=== PATIENT | female | born 1960 | race Hispanic/Latino ===

== ENCOUNTER → 2018-04-21 | Outpatient (CLI) | payer OTHER ==
[~2018-04-21] MED LIST: DIOVAN80 MG PO; METFORMIN HCL500 MG PO
--- NOTE | 2018-05-02 08:36 | Diagnostic Imaging Report ---
#[id number] - MGSCRBIL #BILATERAL DIGITAL SCREENING MAMMOGRAM WITH CAD: 04/21/2018 CLINICAL: Routine screening. Comparison is made to exams dated: 03/19/2017 mammogram and 09/06/2015 mammogram - [facility]. Current study contains 4 films. There are scattered fibroglandular elements in both breasts. Current study was also evaluated with a Computer Aided Detection (CAD) system. There are benign calcifications in both breasts. No significant masses, calcifications, or other findings are seen in either breast. There has been no significant interval change. IMPRESSION: BENIGN There is no mammographic evidence of malignancy. A 1 year screening mammogram is recommended. The patient will be notified by letter of the results. Preet patel/kary:04/29/2018 08:48:21 Cmo: Kathie SAENZ(Andrea)(M), [facility] letter sent: Compared to Prior B9 Mammogram BI-RADS: 2 Benign
== END ==
LOC: MAMMO 08:50
PROVIDERS: ATTEND Internal Medicine
DX: Z12.31 Encounter for screening mammogram for malignant neoplasm of breast (principal)
CPT/HCPCS: 77067

== ENCOUNTER 2018-10-03 05:10 | Observation (INO) | payer OTHER ==
[~2018-10-03] VITALS: Ht 160 cm; Wt 74.8 kg
[2018-10-03] MEDS ORDERED: BACITRACIN 50,000 UNIT VIAL ONE (06:10)
[2018-10-03] MEDS ORDERED: TRANEXAMIC ACID 1,000 MG/10 ML ML ONE (06:10)
[2018-10-03] MEDS ORDERED: VANCOMYCIN HCL 1,000 MG ONE (06:10)
[2018-10-03] MEDS ORDERED: CELECOXIB 200 MG CAP ONE (06:14)
[2018-10-03] MEDS ORDERED: DEXAMETHASONE SOD PHOS 10 MG/1 ML VIAL ONE (06:14)
[2018-10-03] MEDS ORDERED: GABAPENTIN 300 MG CAP ONE (06:15)
[2018-10-03] MEDS ORDERED: VANCOMYCIN 1GM/NS 250 ML 250 ML ONE (06:15)
[2018-10-03] MEDS ORDERED: SODIUM CHLORIDE 0.9% 500ML 500 ML ONE (06:31)
[2018-10-03] MEDS ORDERED: ROPIVACAINE 246.25 MG, EPINEPHRINE HCL 1:1000 1ML 0.5 MG, CLONIDINE HCL 0.08 MG, KETORO... INJ ONE ×5 (07:30)
[2018-10-03] MEDS ORDERED: SODIUM CHLORIDE 0.9% 1000ML 1,000 ML IV SCH (08:39)
[2018-10-03] MEDS ORDERED: DOCUSATE SODIUM 100 MG CAP PO PRN ×2 (08:45→09:15)
[2018-10-03] MEDS ORDERED: HYDROCODONE/APAP 5MG-325MG TAB PO PRN ×2 (08:45→09:15)
[2018-10-03] MEDS ORDERED: DIPHENHYDRAMINE HCL INJ 50 MG/ML VIAL IM/IV PRN ×2 (08:45→09:15)
[2018-10-03] MEDS ORDERED: PROMETHAZINE HCL (IM) 25 MG/ML VIAL INJ PRN (08:45)
[2018-10-03] MEDS ORDERED: HYDROCODONE/APAP 7.5MG-325MG 1 EA TAB PO PRN ×2 (08:45→09:15)
[2018-10-03] MEDS ORDERED: VANCOMYCIN 1GM/NS 250 ML 250 ML IV SCH (08:45)
[2018-10-03] MEDS ORDERED: ZOLPIDEM TARTRATE 5 MG TAB PO PRN ×2 (08:45→21:00)
[2018-10-03] MEDS ORDERED: ONDANSETRON HCL INJ 2MG/ML 2ML 2 MG/ML VIAL IV PRN (08:45)
[2018-10-03] MEDS ORDERED: KETOROLAC TROMETHAMINE 30 MG/ML VIAL IV PRN (08:45)
[2018-10-03] MEDS ORDERED: CELECOXIB 100 MG CAP PO SCH ×2 (09:00→09:15)
[2018-10-03] MEDS ORDERED: ASPIRIN 325 MG TAB PO SCH (09:00)
--- NOTE | 2018-10-03 09:10 | Diagnostic Imaging Report ---
Exam: Right knee 2 views History: Postsurgical Comparison: None. Findings: See impression Impression: 1. Post surgical changes of total right knee replacement with appropriately positioned surgical hardware. No periprosthetic displaced fracture. Expected subcutaneous gas and skin elpidio. Signed by: Dr. Fredrick Mahajan M.D. on 10/03/2018 9:06 AM
--- OUTSIDE RECORDS SUMMARY | 2018-10-03 09:10 | XMS REPORT ---
Author Author [facility] Address Unknown Phone Unavailable Care Team Providers Care Laborer Livestock Name Role Phone Gómez SANTIAGO Unavailable Unavailable Problems This patient has no known problems. Allergies, Adverse Reactions, Alerts This patient has no known allergies or adverse reactions. Medications This patient has no known medications. Results Test Description Test Time Test Comments Text Results Atomic Results Result Comments MAMMOGRAPHY DIGITAL SCR BILAT 2018-04-21 10:10:00 [place] [address] Patient Name: MARVIN CAO MR #: [id number] : 1960 Age/Sex: 57/F Req #: [id number] [facility] Physician: Ordered by: TAMIE SANTIAGO MD Report #: [id number] Location: MAMMO Room/Bed: Procedure: [id number] MG/MAMMOGRAPHY DIGITAL SCR BILAT Exam Date: 04/21/18 Exam Time: 925 REPORT STATUS: Signed #[id number] - MGSCRBIL #BILATERAL DIGITAL SCREENING MAMMOGRAM WITH CAD: 04/21/2018 CLINICAL: Routine screening. Comparison is made to exams dated: 03/19/2017 mammogram and 09/06/2015 mammogram - [facility]. Current study contains 4 films. There are scattered fibroglandular elements in both breasts. Current study was also evaluated with a Computer Aided Detection (CAD) system. There are benign calcifications in both breasts. No significant masses, calcifications, or other findings are seen in either breast. There has been no significant interval change. IMPRESSION: BENIGN There is no mammographic evidence of malignancy. A 1 year screening mammogram is recommended. The patient will be notified by letter of the results. Buffy patel/catalina:04/29/2018 08:48:21 Vulcanizing Press Operator: Kathie SAENZ(Andrea)(Cl), [facility] letter sent: Compared to Prior B9 Mammogram BI-RADS: 2 Benign Dictated By: BUFFY ROBLERO DO 0848 Transcribed By: CATALINA on 04/29/18 0848 COPY TO: TAMIE SANTIAGO MD MAMMOGRAPHY DIGITAL SCR BILAT [place] [address] Patient Name: MARVIN CAO MR #: [id number] : 1960 Age/Sex: 56/F Req #: [id number] Adm Physician: Ordered by: TAMIE SANTIAGO MD Report #: [id number] Location: MAMMO Room/Bed: Procedure: [id number] MG/MAMMOGRAPHY DIGITAL SCR BILAT Exam Date: 03/19/17 Exam Time: 0833 REPORT STATUS: Signed #[id number] - MGSCRBIL #BILATERAL DIGITAL SCREENING MAMMOGRAM WITH CAD: 03/19/2017 CLINICAL: Routine screening. Comparison is made to exams dated: 09/06/2015 mammogram - [facility], 08/17/2014 mammogram and 04/28/2012 mammogram - [facility] [place]. Current study contains 4 films. There are scattered fibroglandular elements in both breasts. Current study was also evaluated with a Computer Aided Detection (CAD) system. There are benign calcifications in both breasts. No significant masses, calcifications, or other findings are seen in either breast. There has been no significant interval change. IMPRESSION: BENIGN There is no mammographic evidence of malignancy. A 1 year screening mammogram is recommended. The patient will be notified by letter of the results. Bufyf patel/catalina:03/30/2017 09:13:59 Vulcanizing Press Operator: Kathie SAENZ(R)(M), [facility] letter sent: Compared to Prior B9 Mammogram BI-RADS: 2 Benign Dictated By: BUFFY ROBLERO DO 2 Transcribed By: CATALINA on 03/30/17912 COPY TO: TAMIE SANTIAGO MD
[2018-10-03] MEDS ORDERED: PROMETHAZINE HCL (IM) 25 MG/ML VIAL IM PRN (09:15)
[2018-10-03] MEDS ORDERED: FENTANYL CITRATE/PF 100MCG/2 ML INJ ONE ×2 (09:59→17:32)
[2018-10-03 10:50] VITALS: BP 137/64
[2018-10-03 11:33] VITALS: BP 137/64
--- NOTE | 2018-10-03 12:45 | NUR ---
PT STATES SHE HAS ALLERGY TO VICODIN. LEFT MESSAGE FOR DR. LOCKWOOD FOR DIFFERENT PAIN MEDICATION SINCE PT HAS NORCO ORDERED. AWAITING CALL BACK.
--- NOTE | 2018-10-03 13:03 | NUR ---
SPOKE TO DR. LOCKWOOD STATES OK TO GIVE TRAMADOL DUE TO REACTION TO NORCO. PT STATES SHE GETS SEVERE VOMITING. TRAMADOL ORDER RECEIVED.
[2018-10-03] MEDS: SODIUM CHLORIDE 0.9% 1000ML 1,000 ML IV SCH ×2 (13:43→19:15)
[2018-10-03] MEDS: ONDANSETRON HCL INJ 2MG/ML 2ML 2 MG/ML VIAL IV PRN ×2 (15:03→18:44)
--- NOTE | 2018-10-03 15:21 | Operative Report ---
DATE OF PROCEDURE: 10/03/2018 SURGEON: Fredrick Bobby MD DIRECTOR PRIVATE MUSIC THERAPY AGENCY: Devyn Jaime PA-C. PREOPERATIVE DIAGNOSIS: Osteoarthritis, right knee. POSTOPERATIVE DIAGNOSIS: Osteoarthritis, right knee. PROCEDURE: Right total knee arthroplasty. INDICATIONS: The patient is a 58-year-old lady, who has end-stage arthritis of her right knee. She has failed conservative management and would like to proceed with a knee replacement. The risks and benefits of the procedure have been discussed at length. The hospital stay, implants, and recovery have all been explained. All of her questions have been answered. She states she understands and wishes to proceed. PROCEDURE IN DETAIL: The patient was brought to the operating room and placed under general anesthetic. She received prophylactic antibiotics, tranexamic acid, and a regional block in the holding area. Her right lower extremity was prepped and draped in a sterile manner. A preoperative time-out was performed, the extremity was exsanguinated and the proximal tourniquet was inflated to 300 mmHg. An anterior approach with a medial parapatellar arthrotomy was performed. A limited medial exposure was performed due to the patient's valgus alignment. Clear synovial fluid was removed from the joint. The knee was brought up into flexion with the patella everted. Complete loss of articular cartilage down to polished subchondral bone was noted primarily involving the lateral compartment. The anterior cruciate ligament was sacrificed. Marginal osteophytes and meniscal remnants were excised. A Malcolm [employer]omet Persona Medial Congruent knee system was used throughout the case. An extramedullary cutting guide was used to resect the proximal tibia. The tibial baseplate was a size D. The central fin punch was impacted and attention was directed towards the distal femur. An intramedullary cutting guide was used to resect the distal femur in 5 degrees of valgus and rotation referencing off a combination of landmarks including Whitesides line, the epicondylar axis, and the posterior condyles as degree of hypoplasia of the posterior lateral condyle was taken into account. The femoral component was a size #7. The anterior and posterior cuts were made. A trial reduction was performed. The lateral compartment was overly tight. A #11 blade and a lamina binder folder operator were used to pie crust the iliotibial band and to balance the knee. A repeat trial reduction with a 10 mm medial congruent insert provided appropriate soft tissue balancing in full extension and 90 degrees of flexion. The patella was resurfaced with a 29 mm patellar button. The thickness of the patella was checked before and after and was right at 20 mm. Patellar tracking was noted to be concentric. The trial implants were then all removed. A 100 mL premixed pericapsular MARTIR injection was placed into the surrounding soft tissue. The knee was thoroughly irrigated with a shower tip pulsatile lavage. Throughout the case, as well, the knee was thoroughly irrigated with a mixture of diluted polymyxin and vancomycin spray. The components were then cemented into place using a single mix of Palacos cement preloaded with antibiotics. Care was taken to remove all extravasated cement. The wound was further irrigated while the cement cured. The arthrotomy was then closed with interrupted #1 Ethibond. The knee was put through flexion and extension to ensure a secure closure. The skin was closed with subcuticular Vicryl elpidio. A sterile Aquacel bandage was applied. She was extubated and transported to recovery room in stable condition. Blood loss was minimal. All needle and sponge counts were correct. Fredrick Bobby MD DR/SIOMARA /[id number]
[2018-10-03 15:28] VITALS: BP 145/64
[2018-10-03] MEDS: ASPIRIN 325 MG TAB PO SCH (17:07)
[2018-10-03] MEDS: CELECOXIB 200 MG CAP PO SCH (17:07)
[2018-10-03] MEDS: VANCOMYCIN 1GM/NS 250 ML 250 ML IV SCH (17:07)
[2018-10-03] MEDS ORDERED: MIDAZOLAM HCL 2 MG/2 ML VIAL ONE (17:32)
[2018-10-03] MEDS ORDERED: ROPIVACAINE 0.5% 5 MG/ML 30 ML SDV ONE (17:33)
[2018-10-03] MEDS ORDERED: LIDOCAINE 2%/ EPINEPHRINE 20ML MDV ONE (17:33)
--- NOTE | 2018-10-03 18:30 | NUR ---
PT PLACED ON CPM AT THIS TIME 55 DEGREES.
[2018-10-03] MEDS ORDERED: KETOROLAC TROMETHAMINE 30 MG/ML VIAL ONE (18:52)
[2018-10-03] MEDS ORDERED: LIDOCAINE HCL 2% LOCAL INJ 5 ML SDV VIAL INJ ONE (18:52)
[2018-10-03] MEDS ORDERED: GLYCOPYRROLATE INJ 1MG/ 5 ML SYR ONE (18:52)
[2018-10-03] MEDS ORDERED: PROPOFOL IV EMULSION 10 MG/ML 20 ML VIAL ONE (18:52)
[2018-10-03] MEDS ORDERED: ONDANSETRON HCL INJ 2MG/ML 2ML 2 MG/ML VIAL ONE (18:52)
[2018-10-03] MEDS ORDERED: SEVOFLURANE INHAL SOLN 250 ML PEN BTL ONE (18:52)
--- NOTE | 2018-10-03 19:01 | NUR ---
BEDSIDE SHIFT REPORT PERFORMED WITH Maribel PARISH RN. PT IS AAOX3, LAYING SEMI FOWLERS IN BED, ON CPM. RR EVEN AND NON-LABORED, ON RA. NO S/SX OF DISTRESS NOTED. LEFT PT LAYING SEMI FOWLERS IN BED, BED IN LOW LOCKED POSITION, SIDE RAILS UPX2, CALL LIGHT AND PHONE WITHIN REACH.
[2018-10-03 20:00] VITALS: BP 121/70
[2018-10-03 23:07] VITALS: BP 121/70
[2018-10-04] VITALS (8 sets, daily range): BP systolic 109–157; BP diastolic 55–69
[2018-10-04] MEDS: TRAMADOL HCL 50 MG TAB PO PRN ×2 (00:02→04:17)
--- NOTE | 2018-10-04 00:10 | NUR ---
APPLIED ICE TO (R) KNEE
[2018-10-04] MEDS: SODIUM CHLORIDE 0.9% 1000ML 1,000 ML IV SCH (02:20)
--- NOTE | 2018-10-04 04:20 | NUR ---
APPLIED ICE TO (R) KNEE
--- NOTE | 2018-10-04 05:00 | NUR ---
REMOVED ICE FROM (R) KNEE
--- NOTE | 2018-10-04 05:55 | NUR ---
REMOVED IRWIN WRAP FROM (R) LEG. LEFT SURGICAL AQUACEL DRESSING IN PLACE OVER (R) KNEE INCISION. APPLIED ADAMARIS PERSAUD.
[2018-10-04] MEDS: VANCOMYCIN 1GM/NS 250 ML 250 ML IV SCH (06:14)
[2018-10-04 06:42] LABS: BASOPHILS % 0.1 % (0.0-1.0); EOSINOPHILS # (AUTO) 0.2 (0.0-0.4); EOSINOPHILS % 1.5 % (0.0-6.0); HEMATOCRIT 33.2 % (34.2-44.1); HEMOGLOBIN 10.7 g/dL (12.0-16.0); LYMPHOCYTES # (AUTO) 1.8 (1.0-3.2); LYMPHOCYTES % 17.3 % (18.0-39.1); MEAN CORPUSCULAR HEMOGLOBIN 29.9 pg (28-32); MEAN CORPUSCULAR HGB CONC 32.2 g/dL (31-35); MEAN CORPUSCULAR VOLUME 92.7 fL (81-99); MONOCYTES % 9.2 % (4.4-11.3); NEUTROPHILS # (AUTO) 7.6 (2.1-6.9); NEUTROPHILS % 71.5 % (38.7-80.0); PLATELET COUNT 202 x10e3/uL (140-360); RED BLOOD COUNT 3.58 x10e6/uL (3.6-5.1); RED CELL DISTRIBUTION WIDTH 14.6 % (11.7-14.4)
[2018-10-04 07:04] LABS: ALANINE AMINOTRANSFERASE 16 IU/L (0-55); ALBUMIN 3.1 g/dL (3.5-5.0); ALKALINE PHOSPHATASE 51 IU/L (40-150); ANION GAP 9.5 mmol/L (8-16); BLOOD UREA NITROGEN 12 mg/dL (7-26); BUN/CREATININE RATIO 16 (6-25); CARBON DIOXIDE 25 mmol/L (22-29); CHLORIDE 106 mmol/L (98-107); CREATININE, SERUM 0.76 mg/dL (0.57-1.11); EST GLOMERULAR FILTRATION RATE > 60 ML/MIN (60-); GLUCOSE 105 mg/dL (74-118); POTASSIUM 4.5 mmol/L (3.5-5.1); SODIUM 136 mmol/L (136-145)
[2018-10-04] MEDS: ASPIRIN 325 MG TAB PO SCH ×2 (07:57→16:49)
[2018-10-04] MEDS: CELECOXIB 200 MG CAP PO SCH ×2 (07:57→16:49)
--- NOTE | 2018-10-04 08:05 | NUR ---
ASSISTED PT TO RESTROOM AND BACK TO CHAIR. WHEN IN CHAIR PT C/O DIZZINESS. BP CHECKED 61/40 HR 46 BLOOD GLUCOSE 90. RAPID RESPONSE CALLED. PT ASSISTED BACK TO BED AND PLACED IN [place]. DR. GARCIA MAKING ROUNDS AT THIS TIME, ORDERED [address] LOCKWOOD ALSO NOTIFIED.
--- NOTE | 2018-10-04 08:14 | NUR ---
ASSESSMENT: Spiritual concern Denture Technician responded to Rapid Response. Pt's moderately anxious about 's condition. Intervention: Provided calming pastoral presence and empathic listening. Informed pt's of availability of greens keeper. Outcome: Pt's expressed appreciation for support. No need to follow at this time. MARTIN Ap[place]elain Spiritual Care Department O: [phone] Pager: [phone] ([phone] number calling from)
[2018-10-04] MEDS: ACETAMINOPHEN 325 MG TAB PO PRN ×3 (10:36→21:45)
--- NOTE | 2018-10-04 10:36 | NUR ---
PT BACK TO BED AFTER WORKING WITH PT. BP RECHECKED NOW 137/61. PT STATES SHE IS FEELING BETTER. NO LONGER FEELING DIZZY. PRN APAP GIVEN FOR RIGHT KNEE PAIN.
[2018-10-04] MEDS: ONDANSETRON HCL INJ 2MG/ML 2ML 2 MG/ML VIAL IV PRN (10:42)
--- NOTE | 2018-10-04 11:03 | NUR ---
CASE MANAGEMENT ASSESSMENT Director Of Spa And Guest Experience to bedside to discuss plan of care with patient/family. CM/SW role and care transitions discussed. Anticipated discharge plan discussed along with duration of care. CM/SW discussed patients right to make decisions in care. CM/SW work hours given. Patient lives: with her and son Admit/Transfer: thru PACU Hospital/ER visits since last admit: 0 POA/Emergency contact: Brent Mari [phone] cell, home Current/Previous Home Health: none PCP/Follow-up Care: Dr. Walker - PCP; will follow up with Dr. Bobby as instructed after discharge Current/Previous DME: walker, BSC, and CPM has been delivered to pt's house Medications (referring to index hospitalization or the first time you were in the hospital) a. Were changes made in your medications when you were in the hospital on [date of index hospitalization]? n/a b. Did you understand the changes? n/a c. Were you able to obtain your new medications right away? n/a d. Were you able to take your medications like the doctor wanted you to? n/a e. Did the hospital give you an accurate, easy to understand list of medications when you left? n/a Scale of 1-10 how comfortable does patient feel with disease management in outpatient setting: Other Services: none Employment Status: unemployed Areas of Concerns: recent surgery, dizziness after working with therapy today Referral Needs: home health. [place]. [place] [facility] [place] signed and placed in chart. Copy to pt. CM called and spoke with Dian with intake at [facility]. She stated they are ready to see pt tomorrow. The office will reach out to pt. Education Needs: post operative instructions IMM/DEL ANGEL given and signed (if applicable): n/a Goal for discharge: home with home health CM/SW left business card at the bedside with contact information. Name and number was also written on the patients whiteboard. Patient verbalized understanding of discussion. CM will follow-up with ongoing discharge and transition of care needs.
--- NOTE | 2018-10-04 13:07 | NUR ---
DR. LOCKWOOD MAKING ROUNDS AT THIS TIME. STATES WILL KEEP PT ONE MORE DAY FOR MONITORING.
--- NOTE | 2018-10-04 14:05 | NUR ---
Visit made by the Spiritual Care Department Pastoral Visitor, Sarah Dior. PV provided pastoral presence, prayer, hospitality, and supportive listening. Pastoral Visitor informed pt/family of the scope of Time Clerk Services and availability. MARTIN ODEN Software Engineer Intern Spiritual Care Department O: [phone] Pager: [phone] ([phone] number calling from)
--- NOTE | 2018-10-04 14:15 | Consultation ---
DATE OF CONSULTATION: 10/04/2018 Medicine Consult REASON FOR CONSULTATION: Medical management. HISTORY OF PRESENT ILLNESS: This is a 58-year-old woman, who underwent elective right total knee replacement on Wednesday, October 03, 2018. She has underlying history of hypertension and type 2 diabetes mellitus. The patient states pain is well controlled. The patient did participate in therapy yesterday after surgery. The patient states she is slightly nauseous after taking oral tramadol. The patient states she is allergic to hydrocodone. BODY AFTER ALLERGIES: REVIEW OF SYSTEMS: GENERAL: Weight is stable. No fever or chills. HEENT: No headaches. No vision changes. CARDIOVASCULAR/RESPIRATORY: No chest pain. GI: Slight nausea with tramadol, but no vomiting. No diarrhea or constipation. : Tran catheter is removed. No UTIs. NEUROMUSCULAR: Denies any pain at this time in her right knee. The patient denies any diabetic neuropathy type symptoms. ALLERGIES: 1. HYDROCODONE. 2. PENICILLIN. 3. IODINE. FAMILY HISTORY: Noncontributory. SOCIAL HISTORY: This woman is , lives with . No history of tobacco use. Drinks alcohol very rarely. She is a homemaker. PAST SURGICAL HISTORY: 1. Right total knee replacement yesterday. 2. Appendectomy. 3. Hysterectomy. 4. Bilateral bunionectomy. 5. Right thumb surgery twice. 6. Lumbar spine surgery twice. HOME MEDICATIONS: 1. Metformin 500 mg daily. 2. Valsartan 80 mg daily. PHYSICAL EXAMINATION: GENERAL: She is awake, alert, fluent, in no distress, very pleasant. VITAL SIGNS: Height 5 feet 3 inches, weight 165 pounds, BMI 29. Blood pressure is 120/56, pulse 60, respiratory rate 18, oxygen saturation 97%, and temperature 97.9. INTEGUMENT: Skin is warm and dry. No pallor, jaundice, or diaphoresis. HEENT: Anicteric sclerae. Moist mucous membranes. NECK: Supple. CARDIOVASCULAR: Regular rate and rhythm. LUNGS: No rales, rhonchi, or wheezes. ABDOMEN: Benign. Normal bowel sounds. Nontender. EXTREMITIES: Right lower extremity is currently in a continuous motion apparatus. The right knee surgical incision is currently dressed. NEUROLOGIC: Intact. DIAGNOSES: 1. Status post right total knee replacement. 2. Hypertension. PLAN: 1. Restart home medications. 2. Mobilize today with physical therapy. 3. Encourage incentive spirometer use to prevent atelectasis. 4. Continue ADAMARIS hose for deep venous thrombosis prevention. 5. General pain control. 6. The patient most likely discharged home today. 7. We will stop intravenous fluids. I spent 40 minutes in the care of the patient. MD MOLLY Gonzalez/SIOMARA /[id number] MTDD
--- NOTE | 2018-10-04 18:52 | NUR ---
PLACED ON CPM AT THIS TIME 65 DEGREES.
--- NOTE | 2018-10-04 18:55 | NUR ---
BEDSIDE SHIFT REPORT RECEIVED FROM Maribel PARISH RN. RECEIVED PT LAYING SEMI FOWLERS IN BED, ON THE CPM AT FLEXION 65. PT IS AAOX3, RR EVEN AND NON-LABORED, ON RA. NO S/SX OF DISTRESS NOTED. LEFT PT LAYING SEMI FOWLERS IN BED, BED IN LOW LOCKED POSITION, SIDE RAILS UPX2, CALL LIGHT AND PHONE WITHIN REACH.
[2018-10-04] MEDS: KETOROLAC TROMETHAMINE 30 MG/ML VIAL IV PRN (21:28)
[2018-10-05] VITALS: BP 135/63
--- NOTE | 2018-10-05 01:47 | NUR ---
PT REPORTS 7/10 PAIN TO (R) KNEE, NO PAIN MEDICATION AVAILABLE AT THIS TIME. APPLIED ICE TO (R) KNEE.
[2018-10-05] MEDS: ACETAMINOPHEN 325 MG TAB PO PRN ×2 (03:24→07:54)
--- NOTE | 2018-10-05 03:24 | NUR ---
BATTERY CHANGED IN CHANNELING MACHINE RUNNER
[2018-10-05 04:00] VITALS: BP 126/66
[2018-10-05 06:07] LABS: ANION GAP 9.7 mmol/L (8-16); BLOOD UREA NITROGEN 15 mg/dL (7-26); BUN/CREATININE RATIO 19 (6-25); CALCIUM 8.8 mg/dL (8.4-10.2); CARBON DIOXIDE 27 mmol/L (22-29); CHLORIDE 108 mmol/L (98-107); CREATININE, SERUM 0.77 mg/dL (0.57-1.11); EST GLOMERULAR FILTRATION RATE > 60 ML/MIN (60-); GLUCOSE 103 mg/dL (74-118); POTASSIUM 3.7 mmol/L (3.5-5.1); SODIUM 141 mmol/L (136-145)
[2018-10-05] MEDS: KETOROLAC TROMETHAMINE 30 MG/ML VIAL IV PRN (06:12)
[2018-10-05 06:13] LABS: BASOPHILS % 0.2 % (0.0-1.0); EOSINOPHILS # (AUTO) 0.1 (0.0-0.4); EOSINOPHILS % 0.6 % (0.0-6.0); HEMOGLOBIN 10.4 g/dL (12.0-16.0); LYMPHOCYTES # (AUTO) 2.3 (1.0-3.2); LYMPHOCYTES % 28.8 % (18.0-39.1); MEAN CORPUSCULAR HEMOGLOBIN 30.8 pg (28-32); MEAN CORPUSCULAR HGB CONC 33.5 g/dL (31-35); MEAN CORPUSCULAR VOLUME 91.7 fL (81-99); MONOCYTES # (AUTO) 0.7 (0.2-0.8); MONOCYTES % 8.3 % (4.4-11.3); NEUTROPHILS % 61.9 % (38.7-80.0); PLATELET COUNT 178 x10e3/uL (140-360); RED BLOOD COUNT 3.38 x10e6/uL (3.6-5.1); RED CELL DISTRIBUTION WIDTH 14.9 % (11.7-14.4)
--- NOTE | 2018-10-05 07:30 | NUR ---
PT RESTING IN BED AA0X3. PT IS CURRENTLY ON CPM. DRESSING TO RIGHT KNEE IS SECURED , BLEEDING NOTED BELOW DRESSING. NO LEAKAGE NOTED PT REPORTS PAIN TO RIGHT KNEE, TOLERABLE AT THIS TIME PT HAS A RIGHT FA 20 G PATENT AND DRY WILL CONTINUE TO MONITOR PT AT THIS TIME, SIDE RAILSX2, CALL LIGHT IS WITHIN EASY REACH INSTRUCTED TO CALL FOR ASSISTANCE IF NEEDED
[2018-10-05 07:53] VITALS: BP 140/69
[2018-10-05] MEDS: ASPIRIN 325 MG TAB PO SCH (07:53)
[2018-10-05] MEDS: CELECOXIB 200 MG CAP PO SCH (07:53)
[2018-10-05 08:23] VITALS: BP 140/69
--- NOTE | 2018-10-05 09:50 | NUR ---
PAGED MD LOCKWOOD TO QUESTION ABOUT PRESCRIPTIONS FOR PAIN UPON DC FOR THERE IS NO PRESCRIPTIONS ON CHART LEFT VOICEMAIL TO CELL, AWAITING FOR CALL BACK
--- NOTE | 2018-10-05 10:12 | NUR ---
SPOKE TO MD LOCKWOOD REGARDING ANY PRESCRIPTIONS NEEDED PRIOR TO DC . STATES NO. PT IS TO TAKE OTC TYLENOL FOR PAIN IF NEEDED WILL DC PT NOW
[2018-10-05] MEDS ORDERED: ONDANSETRON HCL 4 MG ORAL DISINTEGRATING TAB PO PRN (10:15)
--- NOTE | 2018-10-05 10:35 | NUR ---
DISCHARGE INSTRUCTIONS GIVEN. PT VERBALIZED UNDERSTANDING IV DC PRESSURE DRESSING APPLIED AND TAPED. PT IS READY FOR DC AT THIS TIME
== END 2018-10-05 10:41 | disposition home health service (06) ==
LOC: OR 05:10 → PACU V 08:42 → OR 09:08 → MED/SURG 10:55
PROVIDERS: ADMIT Specialist; ATTEND Specialist
DX: M17.11 Unilateral primary osteoarthritis, right knee (principal); E11.9 Type 2 diabetes mellitus without complications; I10 Essential (primary) hypertension; Z79.84 Long term (current) use of oral hypoglycemic drugs; Z88.5 Allergy status to narcotic agent; Z91.013 Allergy to seafood; Z91.048 Other nonmedicinal substance allergy status
CPT/HCPCS: 27447; 36415 ×3; 73560; 80048; 80053; 82948 ×3; 85025 ×2; 86850; 86900; 86920; 93005; 97116 ×3; 97139; 97161; 97530 ×2; C1776; G0378 ×3; J0171; J1100; J1885 ×3; J2001 ×2; J2250; J2405 ×2; J2704; J2795; J3370 ×3; J3490; J7030; J7040

== ENCOUNTER → 2019-04-27 | Outpatient (CLI) | payer OTHER | LOC: MAMMO 12:53 | PROVIDERS: ATTEND Internal Medicine | DX: Z12.31 Encounter for screening mammogram for malignant neoplasm of breast (principal) | CPT/HCPCS: 77067 ==

== ENCOUNTER → 2020-05-29 | Outpatient (CLI) | payer BC ==
[~2020-05-29] MED LIST changes: +ESMOLOL HCL 100MG/10ML 10 MG/ML VIAL ONE
== END ==
LOC: MAMMO 12:13
PROVIDERS: ATTEND Internal Medicine
DX: Z12.31 Encounter for screening mammogram for malignant neoplasm of breast (principal)
CPT/HCPCS: 77067

== ENCOUNTER → 2025-03-27 | Outpatient (REF) | payer BC ==
[~2025-03-27] MED LIST changes: +ASPIRIN81 MG PO; -ESMOLOL HCL 100MG/10ML 10 MG/ML VIAL ONE; +LEVOTHYROXINE50 MCG PO; +NAPROSYN500 MG PO
== END ==
LOC: MAMMO 09:42
PROVIDERS: ATTEND Internal Medicine
DX: Z12.31 Encounter for screening mammogram for malignant neoplasm of breast (principal)
CPT/HCPCS: 77067